=== PATIENT | male | born 1955 | race Two or more races ===

== ENCOUNTER 2021-09-17 11:09 | Emergency (ER) | payer BC, MEDICAID ==
[~2021-09-17] VITALS: Ht 167.6 cm; Wt 59.0 kg
[~2021-09-17 11:09] MED LIST: GLIP5TAB12 PO; LISI-186 PO; METF-416 PO
[2021-09-17] MEDS ORDERED: IBUPROFEN 600MG TABLET PO ONE (12:00)
[2021-09-17] MEDS ORDERED: NAPR-1176 MT (13:08)
[2021-09-17 16:03] VITALS: BP 135/85
== END 2021-09-17 13:30 | disposition home or self-care (01) ==
LOC: ER 11:09
DX: R07.81 Pleurodynia (principal); I10 Essential (primary) hypertension; E11.9 Type 2 diabetes mellitus without complications; J44.1 Chronic obstructive pulmonary disease with (acute) exacerbation; V43.52XA Car driver injured in collision with other type car in traffic accident, initial encounter; Y93.89 Activity, other specified; Y92.89 Other specified places as the place of occurrence of the external cause; Y99.8 Other external cause status
CPT/HCPCS: 71101; 99283